=== PATIENT | female | born 1955 | race Caucasian/White ===

== ENCOUNTER → 2016-04-02 | Outpatient (CLI) | payer OTHER ==
--- NOTE | 2016-04-02 16:37 | MR ---
MRI of the Brain (Without Contrast) at 1557 hours Clinical Indications: Paresthesias, R 20.2, R 41.3, amnesia Comparison: MRI brain March 2009 Technique: T1-weighted images were acquired axially and sagittally from the foramen magnum to the ve rtex. Axial fast inversion recovery, fast T2-weighted, and diffusion-weighted axial images were obta ined without contrast. Findings: The ventricles, cisterns, and sulci are normal without atrophy, hydrocephalus, midline siva ft, herniation, or epidural/subdural hematomas. No intracranial hemorrhage or masses. Brainstem and c erebellar hemispheres appear normal. No infarcts. Benign linear perivascular spaces bilateral frontal and parietal lobes similar to previous study. Diffusion-weighted sequence demonstrates no acute infa rct. Cerebellar tonsils are in normal position. Pituitary gland is normal in size. Normal signal flow -void in the superior sagittal sinus, basilar artery, and bilateral internal carotid arteries indicat ing patency. Paranasal sinuses and mastoid air cells are clear. Impression: Normal MRI of the brain without contrast.
== END ==
LOC: FIMAGING 15:20
PROVIDERS: ATTEND Internal Medicine
DX: R41.3 Other amnesia (principal); R20.2 Paresthesia of skin

== ENCOUNTER → 2016-04-17 | Outpatient (CLI) | payer OTHER ==
--- NOTE | 2016-04-17 10:11 | MA ---
Screening Digital Mammogram With iCAD Analysis Clinical Indications: Routine screening. Technique: Standard cephalocaudal and mediolateral oblique projections were obtained. This examinatio n was processed by the iCAD computer-aided detection system. Comparison: April 2015, November 2013, September 2012, March 2011, February 2010, January 2009, Jan. Breast Density: Type B; Scattered fibroglandular densities. Findings: CAD was reviewed. There is a possible area of architectural change in the posterior mid rig ht breast on the craniocaudal view. This may correlate with mild asymmetric area seen inferiorly on t he oblique view. No suspicious microcalcifications are seen. The left breast is stable in appearance. Impression: Possible developing right breast architectural change requires further evaluation, BI-RAD S 0. Recommendation: Spot compression assessment of the right breast with ultrasound suggested if the abno rmality persists on diagnostic evaluation. Counts Include 234 Beds At [facility] will send a result letter to the patient.
== END ==
LOC: CIMAGING 08:28
DX: Z12.31 Encounter for screening mammogram for malignant neoplasm of breast (principal)
CPT/HCPCS: G0202

== ENCOUNTER → 2016-04-24 | Outpatient (CLI) | payer OTHER | LOC: CIMAGING 12:52 | PROVIDERS: ATTEND Obstetrics & Gynecology | DX: Z12.39 Encounter for other screening for malignant neoplasm of breast (principal); R92.2 Inconclusive mammogram | CPT/HCPCS: G0206 ==

== ENCOUNTER → 2016-05-05 | Outpatient (CLI) | payer OTHER | LOC: CIMAGING 13:43 | PROVIDERS: ATTEND General Practice | DX: M17.0 Bilateral primary osteoarthritis of knee (principal) | CPT/HCPCS: 73560-PO ==

== ENCOUNTER → 2016-06-13 | Outpatient (CLI) | payer OTHER | LOC: FIMAGING 13:39 | PROVIDERS: ATTEND General Practice | DX: M24.10 Other articular cartilage disorders, unspecified site (principal); M71.21 Synovial cyst of popliteal space [Baker], right knee; M25.461 Effusion, right knee ==

== ENCOUNTER → 2017-05-06 | Outpatient (CLI) | payer OTHER | LOC: CIMAGING 15:06 | PROVIDERS: ATTEND Obstetrics & Gynecology | DX: Z12.31 Encounter for screening mammogram for malignant neoplasm of breast (principal) ==

== ENCOUNTER → 2017-05-06 | Outpatient (CLI) | payer OTHER | LOC: FCPNEURO 20:00 | PROVIDERS: ATTEND Internal Medicine Sleep Medicine | DX: G47.33 Obstructive sleep apnea (adult) (pediatric) (principal) ==

== ENCOUNTER → 2018-07-08 | Outpatient (CLI) | payer OTHER | LOC: CIMAGING 08:12 | PROVIDERS: ATTEND Internal Medicine | DX: Z12.31 Encounter for screening mammogram for malignant neoplasm of breast (principal) ==